=== PATIENT | female | born 1990 | race Caucasian/White ===

== ENCOUNTER 2016-09-13 17:38 | Emergency (ER) | payer BC ==
[2016-09-13 17:54] VITALS: BP 129/60
--- NOTE | 2016-09-13 18:14 | UC ---
Knee Pain HPI - HPI Summary HPI Summary: The patient comes in today for: 1. Right knee pain: Onset: 2-3 days ago. Palliative/provocative: Nothing makes the pain better, but going up stairs and hyper flexion makes it worse. Quality: Ache Region: Medial, inferior right knee. Severity: 310 Time: Constant. Associated symptoms: Injury: "I'm not sure." She ran initially, but did not have any pain. However, 1-2 hours later, the pain started at the media side below the joint line. Previous medication: None. Previous injury: NOne. Catch and giving away: once today. * - History of Current Complaint Chief Complaint: UCLowerExtremity Stated Complaint: RIGHT KNEE PAIN Time Seen by Provider: 09/13/16 18:08 Hx Obtained From: Patient Hx Last Menstrual Period: 09/13/16 ?: No - Allergies/Home Medications Allergies/Adverse Reactions: Allergies Allergy/AdvReac Type Severity Reaction Status Date / Time No Known Allergies Allergy Verified 09/13/16 17:54 Home Medications: Home Medications Fexofenadine (NF) [Hoa 180 (NF)] 180 mg PO BEDTIME 09/13/16 [History Confirmed 09/13/16] Isotretinoin [Myorisan] 20 mg PO BID 09/13/16 [History Confirmed 09/13/16] Norethindrone Acet & Eth Estra [Microgestin 06/09] 1 tab PO BEDTIME 09/13/16 [ History Confirmed 09/13/16] PMH/Surg Hx/FS Hx/Imm Hx Previously Healthy: No - Acne/family planning (BCP)/acne Endocrine History Of: Denies: Diabetes, Thyroid Disease, Hyperthyroidism, Hypothyroidism, Dyslipidemia Cardiovascular History Of: Denies: Cardiac Disorders, Hypertension, Pacemaker/ICD, Myocardial Infarction , Congestive Heart Failure, Atrial Fibrillation, Deep Vein Thrombosis, Bleeding Disorders Respiratory History Of: Denies: COPD, Asthma, Bronchitis, Pneumonia, Pulmonary Embolism GI/ History Of: Denies: Gastroesophageal Reflux, Ulcer, Gastrointestinal Bleed, Gall Bladder Disease, Kidney Stones, Diverticulitis, Renal Disease, Urosepsis Neurological History Of: Denies: TIA, CVA, Dementia, Seizures, Migraine Psychological History Of: Denies: Anxiety, Depression, Bipolar Disorder, Schizophrenia, Post Traumatic Stress Disorder Cancer History Of: Denies: Lung Cancer, Colorectal Cancer, Breast Cancer, Prostate Cancer, Cervical Cancer Other History Of: Negative For: HIV, Hepatitis B, Hepatitis C, Anticoagulant Therapy - Surgical History Surgical History: Yes Surgery Procedure, Year, and Place: bilat compartment syndrome lower legs d/t exercise. bunionectomy - Family History Known Family History: Negative: Cardiac Disease, Hypertension - Social History Occupation: Employed Full-time Alcohol Use: Occasionally Substance Use Type: None Smoking Status (MU): Never Smoked Tobacco - Immunization History Most Recent Influenza Vaccination: 0926-2238 Review of Systems Constitutional: Negative Skin: Negative Eyes: Negative ENT: Negative Respiratory: Negative Cardiovascular: Negative Gastrointestinal: Negative Genitourinary: Negative Musculoskeletal: Arthralgia, Myalgia All Other Systems Reviewed And Are Negative: Yes Physical Exam Triage Information Reviewed: Yes Appearance: Well-Appearing, No Pain Distress, Well-Nourished Vital Signs: Initial Vital Signs Temp 99.3 F 09/13/16 17:46 Pulse 68 09/13/16 17:46 Resp 15 09/13/16 17:46 BP 129/60 09/13/16 17:46 Pulse Ox 100 09/13/16 17:46 Vital Signs Reviewed: Yes Eyes: Positive: Conjunctiva Clear. Negative: Discharge ENT: Positive: Hearing grossly normal. Negative: Pharyngeal erythema, Nasal congestion, Nasal drainage, TM bulging, TM dull, TM red, Tonsillar swelling, Tonsillar exudate Dental: Negative: Gross Decay/Caries @, Dental Fracture @ Neck: Positive: Supple, Nontender, No Lymphadenopathy. Negative: Nuchal Rigidity, Tenderness @ Respiratory: Positive: Chest non-tender, Lungs clear, No respiratory distress, No accessory muscle use. Negative: Crackles, Wheezing Cardiovascular: Positive: RRR, No Murmur Abdomen Description: Positive: Nontender, No Organomegaly, Soft. Negative: Distended, Guarding Musculoskeletal: Positive: Strength Intact, ROM Intact, Other: - Right knee: No effusion. There is no tenderness to palpation of indra Neurological: Positive: Alert, Muscle Tone Normal, Fatigued Psychological: Positive: Age Appropriate Behavior, Consolable Skin: Negative: rashes, breakdown Diagnostics - Radiology No standard instances Radiology Interpretation Completed By: Radiologist Knee Pain Course/Dx - Course Course Of Treatment: Patient told of her diagnoses and treatment options. - Differential Dx/Diagnosis Provider Diagnoses: Right pes anserinus bursitis. Right medial collateral ligament strain. internal derangement (torn meniscus). Patello-femoral syndrome. Discharge - Discharge Plan Condition: Stable Disposition: HOME Patient Education Materials: Patellofemoral Pain Syndrome (ED), Knee Bursitis ( ED), Knee Sprain (ED), Meniscus Tear (ED) Referrals: Delroy Rivera MD [Primary Care Provider] - 1 Week (Please see your primary care provider in about one to two weeks to see how well you are doing. If you get worse, please be seen sooner.)
--- NOTE | 2016-09-13 19:33 | RAD ---
INDICATION: Right knee pain after running. TECHNIQUE: 4 views of the right knee were obtained. FINDINGS: The bones are in normal alignment. No joint effusion or fracture is seen. Joint spaces appear maintained. IMPRESSION: NEGATIVE EXAM.
== END 2016-09-13 19:52 | disposition home or self-care (01) ==
LOC: UCCORT 17:38
DX: M70.51 Other bursitis of knee, right knee (principal); S83.411A Sprain of medial collateral ligament of right knee, initial encounter; S83.8X1A Sprain of other specified parts of right knee, initial encounter; X58.XXXA Exposure to other specified factors, initial encounter; Y93.9 Activity, unspecified; Y92.9 Unspecified place or not applicable; L70.9 Acne, unspecified
CPT/HCPCS: 99212; G0463

== ENCOUNTER 2019-06-06 17:07 | Emergency (ER) | payer BC, OTHER ==
--- OUTSIDE RECORDS SUMMARY | 2019-06-06 17:15 | XMS REPORT | Continuity of Care Document ---
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 Problems Description No Information Available Social History Type Date Description Comments Sex Unknown Tobacco Use Start: Unknown Never Smoked Cigarettes ETOH Use Occassional Alcohol Recreational Drug Use Never Used Drugs Tobacco Use Start: Unknown Patient has never smoked Smoking Status Reviewed: 05/05/19 Patient has never smoked Exercise Type/Frequency 07/26/2018 Exercises regularly running, stength Sun Exposure Uses sunscreen Seat Belt/Car Seat always uses seat belt Allergies, Adverse Reactions, Alerts Description No Known Drug Allergies Medications Active Medications SIG Qnty Indications Ordering Date Provider Cefdinir 1 tablet twice 20caps J02.9 Benita Paulino 05/16/2019 300mg Capsules daily for 10 L, days, stop medication if any adverse effects Mometasone Furoate as directed Surinder, 07/03/2018 MD Jaspal 50mcg/Act Suspension Levocetirizine as directed Surinder 07/03/2018 Dihydrochloride MD Jaspal 5mg Tablets Immunizations CPT Code Status Date Vaccine Lot # [id number] Given 02/19/2019 Influenza Virus Vaccine, Quadrivalent, Split, Preservative Free 11544 Given 02/08/2018 Influenza Virus Vaccine, Quadrivalent, Split, Preservative Free 57799 Given 07/27/2007 Gardasil 9 HPV vaccine; Nonavalent 3 Dose Schedule Im Vital Signs Date Vital Result Comment 05/16/2019 9:04am BP Systolic 108 mmHg BP Diastolic 68 mmHg Body Temperature 98.5 F Height 65 inches 5'5" Weight 147.00 lb w/boots BMI (Body Mass Index) 24.5 kg/m2 11/29/2018 4:04pm BP Systolic 108 mmHg BP Diastolic 62 mmHg Height 65 inches 5'5" Weight 150.00 lb BMI (Body Mass Index) 25.0 kg/m2 Results Test Acquired Date Facility Test Result H/L Range Note Laboratory test 05/16/2019 In House Culture Throat <pending> finding Culture Throat Rapid Screen negative Procedures Date Code Description Status 05/15/2019 91309 Allergy Injections-Multiple Completed 05/01/2019 37568 Allergy Injections-Multiple Completed 04/16/2019 62154 Allergy Injections-Multiple Completed 04/03/2019 23946 Allergy Injections-Multiple Completed 03/20/2019 25350 Allergy Injections-Multiple Completed 03/05/2019 02999 Allergy Injections-Multiple Completed 02/20/2019 65688 Allergy Injections-Multiple Completed 02/06/2019 66977 Allergy Injections-Multiple Completed 01/23/2019 39038 Allergy Injections-Multiple Completed 01/09/2019 83850 Allergy Injections-Multiple Completed 12/26/2018 77003 Allergy Injections-Multiple Completed 12/12/2018 96498 Allergy Injections-Multiple Completed 11/28/2018 81628 Allergy Injections-Multiple Completed Medical Devices Description No Information Available Encounters Type Date Location Provider Dx Diagnosis Office Visit 05/16/2019 Main Office Benita Paulino J02.9 Acute pharyngitis, 8:55a unspecified Z68.24 Body mass index (BMI) 24.0-24.9, adult Office Visit 11/29/2018 4:00p Main Office Soraya Herrera Z02.89 Encounter for other P.A. administrative examinations Z68.25 Body mass index (BMI) 25.0-25.9, adult Assessments Date Code Description Provider 05/16/2019 J02.9 Acute pharyngitis, unspecified Benita Paulino MD 05/16/2019 Z68.24 Body mass index (BMI) 24.0-24.9, adult Benita Paulino MD 05/15/2019 J30.9 Allergic rhinitis, unspecified Nurse's Schedule 05/15/2019 J30.1 Allergic rhinitis due to pollen Nurse's Schedule 05/15/2019 J30.89 Other allergic rhinitis Nurse's Schedule 05/01/2019 J30.2 Other seasonal allergic rhinitis Nurse's Schedule 05/01/2019 J30.9 Allergic rhinitis, unspecified Nurse's Schedule 05/01/2019 J30.1 Allergic rhinitis due to pollen Nurse's Schedule 05/01/2019 J30.89 Other allergic rhinitis Nurse's Schedule 04/16/2019 J30.1 Allergic rhinitis due to pollen Nurse's Schedule 04/16/2019 J30.89 Other allergic rhinitis Nurse's Schedule 04/16/2019 J30.9 Allergic rhinitis, unspecified Nurse's Schedule 04/03/2019 J30.1 Allergic rhinitis due to pollen Nurse's Schedule 04/03/2019 J30.89 Other allergic rhinitis Nurse's Schedule 04/03/2019 J30.2 Other seasonal allergic rhinitis Nurse's Schedule 04/03/2019 J30.9 Allergic rhinitis, unspecified Nurse's Schedule 03/20/2019 J30.1 Allergic rhinitis due to pollen Nurse's Schedule 03/20/2019 J30.89 Other allergic rhinitis Nurse's Schedule 03/20/2019 J30.2 Other seasonal allergic rhinitis Nurse's Schedule 03/20/2019 J30.9 Allergic rhinitis, unspecified Nurse's Schedule 03/05/2019 J30.1 Allergic rhinitis due to pollen Nurse's Schedule 03/05/2019 J30.89 Other allergic rhinitis Nurse's Schedule 03/05/2019 J30.2 Other seasonal allergic rhinitis Nurse's Schedule 03/05/2019 J30.9 Allergic rhinitis, unspecified Nurse's Schedule 02/20/2019 J30.1 Allergic rhinitis due to pollen Nurse's Schedule 02/20/2019 J30.89 Other allergic rhinitis Nurse's Schedule 02/20/2019 J30.9 Allergic rhinitis, unspecified Nurse's Schedule 02/06/2019 J30.1 Allergic rhinitis due to pollen Nurse's Schedule 02/06/2019 J30.89 Other allergic rhinitis Nurse's Schedule 02/06/2019 J30.9 Allergic rhinitis, unspecified Nurse's Schedule 01/23/2019 J30.1 Allergic rhinitis due to pollen Nurse's Schedule 01/23/2019 J30.89 Other allergic rhinitis Nurse's Schedule 01/23/2019 J30.2 Other seasonal allergic rhinitis Nurse's Schedule 01/23/2019 J30.9 Allergic rhinitis, unspecified Nurse's Schedule 01/09/2019 J30.1 Allergic rhinitis due to pollen Nurse's Schedule 01/09/2019 J30.89 Other allergic rhinitis Nurse's Schedule 01/09/2019 J30.2 Other seasonal allergic rhinitis Nurse's Schedule 01/09/2019 J30.9 Allergic rhinitis, unspecified Nurse's Schedule 12/26/2018 J30.1 Allergic rhinitis due to pollen Nurse's Schedule 12/26/2018 J30.89 Other allergic rhinitis Nurse's Schedule 12/26/2018 J30.9 Allergic rhinitis, unspecified Nurse's Schedule 12/12/2018 J30.1 Allergic rhinitis due to pollen Nurse's Schedule 12/12/2018 J30.89 Other allergic rhinitis Nurse's Schedule 12/12/2018 J30.2 Other seasonal allergic rhinitis Nurse's Schedule 12/12/2018 J30.9 Allergic rhinitis, unspecified Nurse's Schedule 11/29/2018 Z02.89 Encounter for other administrative examinations Esdras Hilario 11/29/2018 Z68.25 Body mass index (BMI) 25.0-25.9, adult Esdras Hilario 11/28/2018 J30.1 Allergic rhinitis due to pollen Nurse's Schedule 11/28/2018 J30.89 Other allergic rhinitis Nurse's Schedule 11/28/2018 J30.2 Other seasonal allergic rhinitis Nurse's Schedule 11/28/2018 J30.9 Allergic rhinitis, unspecified Nurse's Schedule Plan of Treatment Future Appointment(s):05/31/2019 11:00 am - Nurse's Schedule at Main [id number] - Esdras HilarioZ02.89 Encounter for other administrative [id number] Body mass index (BMI) 25.0-25.9, adult Functional Status Description No Information Available Mental Status Description No Information Available Referrals Description No Information Available
--- OUTSIDE RECORDS SUMMARY | 2019-06-06 17:15 | XMS REPORT | Continuity of Care Document ---
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 Problems Description No Information Available [...] CPT Code Status Date Vaccine Lot # [id number] Given 02/19/2019 Influenza Virus Vaccine, Quadrivalent, Split, Preservative Free [id number] Given 02/08/2018 Influenza Virus Vaccine, Quadrivalent, Split, Preservative Free 27323 Given 07/27/2007 Gardasil 9 HPV vaccine; Nonavalent [...] negative Procedures Date Code Description Status 05/15/2019 84224 Allergy Injections-Multiple Completed 05/01/2019 20801 Allergy Injections-Multiple Completed 04/16/2019 33842 Allergy Injections-Multiple Completed 04/03/2019 72906 Allergy Injections-Multiple Completed 03/20/2019 99213 Allergy Injections-Multiple Completed 03/05/2019 51587 Allergy Injections-Multiple Completed 02/20/2019 05935 Allergy Injections-Multiple Completed 02/06/2019 91759 Allergy Injections-Multiple Completed 01/23/2019 81167 Allergy Injections-Multiple Completed 01/09/2019 82704 Allergy Injections-Multiple Completed 12/26/2018 51360 Allergy Injections-Multiple Completed 12/12/2018 40309 Allergy Injections-Multiple Completed 11/28/2018 67567 Allergy Injections-Multiple Completed Medical Devices Description No [...] 11:00 am - Nurse's Schedule at Main [id number] - Esdras HilarioZ02.89 Encounter for other administrative [id number] Body mass index (BMI) 25.0-25.9, adult Functional Status Description No Information Available Mental Status Description No Information Available Referrals Description No Information Available
[2019-06-06 17:31] VITALS: BP 121/61
--- NOTE | 2019-06-06 18:08 | UC ---
Lower Extremity/Ankle HPI - HPI Summary HPI Summary: 38-year-old woman comes in with a chief complaint of right quadriceps pain. She is in [email or web address] training [email or web address]. This morning during sprints in PT, patient had sudden onset of right quadricep pain. She is able to walk although it does hurt. She is able to extend and flex the knee flexing the knee causes more pain. No weakness or numbness. No knee or hip pain. - History of Current Complaint Chief Complaint: UCLowerExtremity Stated Complaint: WC-RT LEG COMPLAINT Time Seen by Provider: 06/06/19 17:37 Hx Last Menstrual Period: 05/30/19 Pain Intensity: 2 - Allergies/Home Medications Allergies/Adverse Reactions: Allergies Allergy/AdvReac Type Severity Reaction Status Date / Time No Known Allergies Allergy Verified 06/06/19 17:31 Home Medications: Home Medications LevoCETirizine TAB (NF) [Xyzal TAB (NF)] 5 mg PO DAILY 06/06/19 [History Confirmed 06/06/19] PMH/Surg Hx/FS Hx/Imm Hx Previously Healthy: Yes Other History Of: Negative For: HIV, Hepatitis B, Hepatitis C, Anticoagulant Therapy - Surgical History Surgical History: Yes Surgery Procedure, Year, and Place: bilat compartment syndrome lower legs d/t exercise. bunionectomy - Family History Known Family History: Negative: Cardiac Disease, Hypertension - Social History Alcohol Use: Occasionally Substance Use Type: None Smoking Status (MU): Never Smoked Tobacco - Immunization History Most Recent Influenza Vaccination: [id number] Review of Systems All Other Systems Reviewed And Are Negative: Yes Constitutional: Positive: Negative Skin: Positive: Negative Eyes: Positive: Negative ENT: Positive: Negative Respiratory: Positive: Negative Cardiovascular: Positive: Negative Gastrointestinal: Positive: Negative Motor: Positive: Negative Neurovascular: Positive: Negative Musculoskeletal: Positive: Other: - SEE HPI Neurological: Positive: Negative Psychological: Positive: Negative Is Patient Immunocompromised?: No Physical Exam Triage Information Reviewed: Yes Appearance: Well-Appearing, Well-Nourished, Pain Distress - MILD WITH RT LEG ROM AND EXAM Vital Signs: Initial Vital Signs Temp 98.5 F 06/06/19 17:26 Pulse 62 06/06/19 17:26 Resp 12 06/06/19 17:26 BP 121/61 06/06/19 17:26 Pulse Ox 100 06/06/19 17:26 Vital Signs Reviewed: Yes Eye Exam: Normal Eyes: Positive: Conjunctiva Clear Neck: Positive: Supple Respiratory: Positive: Lungs clear, Normal breath sounds, No respiratory distress Cardiovascular: Positive: RRR Musculoskeletal: Positive: Other: - Patient mild tenderness to palpation anterior aspect back to the proximal right quadriceps. She is able to flex and extend the hip and the knee on the right side. Increased pain with flexion of the knee. Normal sensation. There is increased pain in the quadriceps with right plantar flexion and dorsiflexion also. Neurological: Positive: Alert Psychological: Positive: Age Appropriate Behavior Skin Exam: Normal Lower Extremity Course/Dx - Course Course Of Treatment: The plan will be ice anti-inflammatories and rest. Patient's next scheduled PT in [email or web address] is 11 June. At this time it's unsure whether or not she'll be completely improved by 11 June. I recommended if she is completely improved she can go back to full PT on 11 June however if she is not completely improved she is to follow up either with occupational medicine or sports medicine or orthopedics. - Differential Dx/Diagnosis Provider Diagnosis: Strain of right quadriceps muscle Discharge ED - Sign-Out/Discharge Documenting (check all that apply): Patient Departure All imaging exams completed and their final reports reviewed: No Studies - Discharge Plan Condition: Stable Disposition: HOME Patient Education Materials: Muscle Strain (ED) Forms: *Physical Education Release Referrals: Delroy Rivera MD [Primary Care Provider] - Jer Voss MD [Medical Doctor] - [facility] [Provider Group] Ankit Marmolejo MD [Medical Doctor] - Additional Instructions: FOLLOW UP WITH OCCUPATIONAL MEDICINE, DR VOSS, OR SPORTS MEDICINE OR ORTHOPEDICS IF NOT COMPLETELY IMPROVED. GET REEVALUATED SOONER IF NOT IMPROVING OR WORSE OR ANY QUESTIONS OR CONCERNS. - Billing Disposition and Condition Condition: STABLE Disposition: Home
== END 2019-06-06 18:16 | disposition home or self-care (01) ==
LOC: UCCORT 17:07
DX: S76.111A Strain of right quadriceps muscle, fascia and tendon, initial encounter (principal); X58.XXXA Exposure to other specified factors, initial encounter; Y92.9 Unspecified place or not applicable
CPT/HCPCS: 99211; G0463